=== PATIENT | male | born 1985 | race American Indian/Alaskan Native ===

== ENCOUNTER 2017-12-30 11:54 | Emergency (ER) | payer SELFPAY ==
--- NOTE | 2017-12-30 14:05 | Ultrasound Report ---
Scrotal ultrasound: Left scrotal mass. Patient indicates mass fluctuates with bowel movement. The right testicle measures 18 x 30 x 38 mm. and is located in the high right sac. It is echogenically unremarkable except for a few scattered microliths. There is normal blood flow. There is an 18 mm cyst in the epididymis head. A small amount of hydrocele fluid is noted. The left testicle measures 21 x 32 x 38 mm also having normal blood flow and a generally unremarkable echo pattern. The epididymis is not clearly visualized. The left testicle is markedly displaced inferiorly by an inhomogeneously echogenic mass measuring approximately 11 cm in maximum size. There is no peristalsis. The origin of the mass is not clearly visualized. Impressions: The findings may represent a hernia within the scrotal sac. No acute testicular pathology is identified. There is mild microlithiasis of the right testicle and a small right hydrocele.
--- NOTE | 2017-12-30 20:39 | Emergency Department Report ---
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 denies: discharge, mass, rash, urinary retention, blood in urine, dysuria, fever, nausea/vomiting, incontinence - Related Data Sexually active: Yes Previous Rx's Medication Instructions Recorded Last Taken Type Docusate Sodium [Colace] 100 mg PO BID #60 capsule 12/30/17 Unknown Rx traMADol [Ultram] 50 mg PO Q6HR PRN #20 tablet 12/30/17 Unknown Rx Allergies Allergy/AdvReac Type Severity Reaction Status Date / Time No Known Allergies Allergy Unverified 12/30/17 12:20 ED Review of Systems ROS: Stated complaint: SPIDER BITE, SWELLING IN GRION Other details as noted in HPI Constitutional: denies: chills, fever Eyes: denies: eye pain, eye discharge, vision change ENT: denies: ear pain, throat pain Respiratory: denies: cough, shortness of breath, wheezing Cardiovascular: denies: chest pain, palpitations Endocrine: no symptoms reported Gastrointestinal: denies: abdominal pain, nausea, diarrhea Genitourinary: testicular pain, testicular mass. denies: urgency, dysuria, frequency, hematuria, discharge Musculoskeletal: denies: back pain, joint swelling, arthralgia Skin: denies: rash, lesions Neurological: denies: headache, weakness, paresthesias Psychiatric: denies: anxiety, depression Hematological/Lymphatic: denies: easy bleeding, easy bruising ED Past Medical Hx - Past Medical History Previous Medical History?: No - Surgical History Past Surgical History?: No - Social History Smoking Status: Never Smoker - Medications Home Medications: Home Medications Medication Instructions Recorded Confirmed Last Taken Type Docusate Sodium [Colace] 100 mg PO BID #60 capsule 12/30/17 Unknown Rx traMADol [Ultram] 50 mg PO Q6HR PRN #20 tablet 12/30/17 Unknown Rx ED Physical Exam - General Limitations: No Limitations General appearance: alert, in no apparent distress - Head Head exam: Present: atraumatic, normocephalic - Eye Eye exam: Present: normal appearance - ENT ENT exam: Present: mucous membranes moist - Neck Neck exam: Present: normal inspection - Respiratory Respiratory exam: Present: normal lung sounds bilaterally. Absent: respiratory distress - Cardiovascular Cardiovascular Exam: Present: regular rate, normal rhythm. Absent: systolic murmur, diastolic murmur, rubs, gallop - GI/Abdominal GI/Abdominal exam: Present: soft, normal bowel sounds - Rectal Rectal exam: Present: deferred - exam: Present: scrotal swelling, circumcision. Absent: testicular tenderness , urethral discharge External exam: Present: swelling, other (hernia ). Absent: erythema, lesions, lacerations, ecchymosis, bleeding - Extremities Exam Extremities exam: Present: normal inspection, full ROM - Back Exam Back exam: Present: normal inspection, full ROM. Absent: CVA tenderness (R), CVA tenderness (L) - Neurological Exam Neurological exam: Present: alert, oriented X3, CN II-XII intact, normal gait, reflexes normal - Psychiatric Psychiatric exam: Present: normal affect, normal mood - Skin Skin exam: Present: warm, dry, intact, normal color. Absent: rash ED Course Vital Signs 12/30/17 12:21 Temperature 97.6 F Pulse Rate 98 H Respiratory 16 Rate Blood Pressure 165/103 O2 Sat by Pulse 98 Oximetry ED Medical Decision Making - Radiology Data Radiology results: report reviewed, image reviewed scrotal sac hernia , no acute testicular pathalolgy , small right hydrocele - Medical Decision Making pt with scrotal hernia no bruit no trill no parastolisis , there is no penile discharger no erythema no fever pt is tolerating bm with out pain at this time, last bm 1 hr ago, normal no pain , last void 30 min ago no pain no discharge. plan ultram prn pain , colace, follow up with general surgery in 2 days return to ed if unable to have bm, pain increase, n/v pt verbalized agreement and understanding of same. Critical care attestation.: If time is entered above; I have spent that time in minutes in the direct care of this critically ill patient, excluding procedure time. ED Disposition Clinical Impression: Scrotal hernia Disposition: - TO HOME OR SELFCARE Is pt being admited?: No Does the pt Need Aspirin: No Condition: Good Instructions: Hydrocele (ED), Inguinal Hernia (ED), Testicle Pain (ED) Prescriptions: Docusate Sodium [Colace] 100 mg PO BID #60 capsule traMADol [Ultram] 50 mg PO Q6HR PRN #20 tablet PRN Reason: Pain Referrals: EDWIN TOBIN MD [Staff Physician] - 3-5 Days Forms: Work/School Release Form(ED) Time of Disposition: 20:56
[2017-12-31 00:09] VITALS: BP 138/90
== END 2017-12-30 21:14 | disposition home or self-care (01) ==
LOC: ED 11:54
DX: K40.90 Unilateral inguinal hernia, without obstruction or gangrene, not specified as recurrent (principal)
CPT/HCPCS: 93975; 99283